=== PATIENT | female | born 1945 | race Caucasian/White ===

== ENCOUNTER 2017-06-17 05:50 | Emergency (ER) | payer MEDICARE, OTHER ==
[~2017-06-17] VITALS: Ht 157.5 cm; Wt 58.6 kg
[2017-06-17 05:50] VITALS: BP 156/67; PULSE 85; RESP 18; TEMP 98.2; O2SAT 97
[~2017-06-17 05:50] MED LIST: ALBU0.086 INH; FLOV44AE IN; FURO1TAB93 PO; IPRA0.02 INH; METO25 PO/TUBE; METO50CR PO; NEXI40CA PO; POLY17S PO/NG; POTA-243 PO; PRED20 PO; QUIN40TA10 PO; SIMV40TA PO; TIOT18I INH
[2017-06-17] MEDS ORDERED: CEPH-460 PO (06:23)
--- NOTE | 2017-06-17 06:23 | PD ---
HPI Chief Complaint: Fall Time Seen by Provider: 05:54 Travel History International Travel<30 days: No Contact w/Intl Traveler<30days: No Traveled to known affect area: No History of Present Illness HPI 71-year-old female complains of laceration to the right upper eye lid and the right forearm. Patient states that she fell this morning. Patient denies loss of consciousness. Patient denies any headache or neck pain. Patient denies any extremity injury except lacerations. Patient states that she is not up-to- date with TD booster. PFSH Past Medical History Arthritis: Yes Asthma: Yes Anxiety: No Depression: No Cancer: No Cardiovascular Problems: Yes (PEA CARDIAC ARREST: 04/22/15) High Cholesterol: Yes COPD: Yes Diabetes: No Diminished Hearing: No Endocrine: No Gastrointestinal Disorders: Yes GERD: Yes Genitourinary: No Hypertension: Yes Immune Disorder: No Implanted Vascular Access Dvce: Yes Musculoskeletal: Yes Neurologic: No Psychiatric: No Reproductive: No Respiratory: Yes Immunizations Current: Yes (SHINGLES VACCINE 2013) Myocardial Infarction: Yes Thyroid Disease: No Tetanus Vaccination: Unknown ?: Not Menopausal: Yes : 4 Para: 4 Past Surgical History Body Medical Devices: plates in left wrist and left shoulder. Eye Surgery: Yes (left eye cataract surgery) Gynecologic Surgery: Yes (hysterectomy fissure repair) Hysterectomy: Yes Pacemaker: No Other Surgery: Yes Social History Alcohol Use: Yes (6 GLASSES OF WINE PER WEEK) Tobacco Use: No (QUIT 05/06) Substance Use: No Allergies-Medications (Allergen,Severity, Reaction): Coded Allergies: Codeine (Verified Adverse Reaction, Intermediate, Nausea/Vomiting, 06/17/17 ) Reported Meds & Prescriptions Reported Meds & Active Scripts Active Metoprolol Tartrate 25 mg (Metoprolol Tartrate) 25 Mg Tab 25 Mg PO/TUBE Q12HR Polyethylene Glycol 3350 (Polyethylene Glycol) 17 Gm Pkg 17 Gm PO/NG BID Deltasone (Prednisone) 20 Mg Tab 1 Tab PO BID Atrovent Ud 0.02% (0.5 Mg/2.5 Ml) (Ipratropium [place]) 0.5 Mg/2.5 Ml Nebu 0.5 Mg INH Q4 Reported Proventil Ud 0.083% (2.5 Mg/3 Ml) (Albuterol Sulfate) 2.5 Mg/3 Ml Inha 2.5 Mg INH Q4 Metoprolol Succinate ER (Metoprolol Succinate) 50 Mg Tab 1 Tab PO DAILY Flovent Hfa (Fluticasone Propionate) 44 Mcg Aer 2 Puff IN BID Quinapril 40 mg (Quinapril HCl) 40 Mg Tab 40 Mg PO DAILY Spiriva 18 Mcg Oral Inh (Tiotropium [place]) 18 Mcg Inhp 18 Mcg INH DAILY 1 CAPSULE DAILY K-Dur (Potassium Chloride) 10 Meq Tabcr 20 Meq PO DAILY Simvastatin 40 Mg Tab 40 Mg PO DAILY Lasix (Furosemide) 40 Mg Tab 20 Mg PO DAILY Nexium (Esomeprazole Magnesium) 40 Mg Cap 40 Mg PO DAILY Review of Systems General / Constitutional: No: Fever Eyes: No: Visual changes HENT: No: Headaches Cardiovascular: No: Chest Pain or Discomfort Respiratory: No: Shortness of Breath Gastrointestinal: No: Abdominal Pain Genitourinary: No: Dysuria Musculoskeletal: No: Pain Skin: No Rash Neurologic: No: Weakness Psychiatric: No: Depression Endocrine: No: Polydipsia Hematologic/Lymphatic: No: Easy Bruising Physical Exam Narrative GENERAL: Well-nourished, well-developed patient. SKIN: Focused skin assessment warm/dry. HEAD: Normocephalic. EYES: No scleral icterus. No injection or drainage. NECK: Supple, trachea midline. No JVD or lymphadenopathy. CARDIOVASCULAR: Regular rate and rhythm without murmurs, gallops, or rubs. RESPIRATORY: Breath sounds equal bilaterally. No accessory muscle use. GASTROINTESTINAL: Abdomen soft, non-tender, nondistended. MUSCULOSKELETAL: No cyanosis, or edema. BACK: Nontender without obvious deformity. No CVA tenderness. Patient has a 4 cm laceration right upper eyelid. Minor bleeding noted. Patient has a 15 cm laceration to the right forearm ulnar aspect of the right forearm. Several macerated skin area on the laceration. Data Data Last Documented VS Vital Signs Date Time Temp Pulse Resp B/P Pulse Ox O2 Delivery O2 Flow Rate FiO2 06/17/17 05:50 98.2 85 18 156/67 97 06/17/17 05:50 Nasal Cannula 2 Orders Tetanus/Diphtheria Tox Adult (Tetanus/Di (06/17/17 06:30) MDM Medical Decision Making Medical Screen Exam Complete: Yes Emergency Medical Condition: Yes Differential Diagnosis Differential diagnosis including laceration, soft tissue injury, ligament tendon joint injury. Narrative Course 71-year-old female with right upper eyelid and right forearm laceration. TD booster given. Procedures Procedure Narrative LACERATION LOCATION: Right upper eyelid and right forearm LENGTH: 19 cm NUMBER OF STITCHES/YAEL: Dermabond REPAIR: The area of the laceration was cleaned with saline solution. The wound was copiously irrigated and explored without evidence of foreign body, tendon injury or neurovascular injury. The wound was closed using Dermabond. This was a single layer repair. A sterile dressing was applied. The patient was advised to keep the dressing clean and dry. Patient tolerated the procedure well. Diagnosis Primary Impression: Laceration, eyelid, right Qualified Code: S01.111A - Laceration, eyelid, right, initial encounter Additional Impression: Laceration of right forearm Qualified Code: S51.811A - Laceration of right forearm, initial encounter Patient Instructions: General Instructions Additional Instructions: Keep wound clean and dry for 10 days. Keflex as directed. Follow-up with personal physician. Return as needed. Med/Other Pt SpecificInfo: Prescription(s) given Scripts Cephalexin (Keflex)500 Mg [id number] Mg PO TID #15 CAP Ref 0 Prov:Marco A Holt MD 06/17/17 Disposition: 01 DISCHARGE HOME Condition: Stable Marco A Holt MD Jun 17, 2017 06:23
[2017-06-17] MEDS ORDERED: TETANUS/DIPHTHERIA TOXOID ADULT 0.5 ML VIAL IM ONE (06:30)
== END 2017-06-17 06:37 | disposition home or self-care (01) ==
LOC: PHED 05:50
DX: S01.111A Laceration without foreign body of right eyelid and periocular area, initial encounter (principal); S51.811A Laceration without foreign body of right forearm, initial encounter; W19.XXXA Unspecified fall, initial encounter; Z23 Encounter for immunization
CPT/HCPCS: 12005; 12013; 90471; 90714

== ENCOUNTER 2018-02-14 16:08 | Inpatient (IN) | payer MEDICARE, OTHER ==
[~2018-02-14] VITALS: Ht 160 cm; Wt 58.2 kg
[~2018-02-14 16:08] MED LIST changes: +CEPH-460 PO
[2018-02-14 16:43] VITALS: BP 155/68; PULSE 92; RESP 16; TEMP 98.5; O2SAT 94
[2018-02-14] MEDS ORDERED: MORPHINE SULFATE 4 MG/ML INJ IV PUSH ONE (17:00)
[2018-02-14 17:51] LABS: BASOPHIL # 0.1 TH/MM3 (0-0.2); BASOPHIL % 0.6 % (0.0-2.0); EOSINOPHIL # 0.3 TH/MM3 (0-0.4); EOSINOPHIL % 2.2 % (0.0-4.0); HEMATOCRIT 31.5 % (35.0-46.0); HEMOGLOBIN 9.7 GM/DL (11.6-15.3); LYMPH % 20.6 % (9.0-44.0); LYMPHOCYTE # 2.4 TH/MM3 (1.0-4.8); MEAN CELL VOLUME 72.1 FL (80.0-100.0); MEAN CORPUSCULAR HEMOGLOBIN 22.2 PG (27.0-34.0); MEAN CORPUSCULAR HGB CONC 30.9 % (32.0-36.0); MEAN PLATELET VOLUME 6.7 FL (7.0-11.0); MONOCYTE # 0.9 TH/MM3 (0-0.9); NEUT % 68.6 % (16.0-70.0); PLATELET COUNT 326 TH/MM3 (150-450); RED BLOOD COUNT 4.37 MIL/MM3 (4.00-5.30); RED CELL DISTRIBUTION WIDTH 19.1 % (11.6-17.2); WHITE BLOOD COUNT 11.6 TH/MM3 (4.0-11.0)
[2018-02-14 17:56] LABS: INTERNATIONAL NORMALIZED RATIO 0.9 RATIO; PROTHROMBIN TIME - PATIENT 9.3 SEC (9.8-11.6)
[2018-02-14 18:03] LABS: ALBUMIN 3.6 GM/DL (3.4-5.0); ALT (GPT) 18 U/L (10-53); AST (GOT) 20 U/L (15-37); BICARBONATE 30.7 MEQ/L (21.0-32.0); BLOOD UREA NITROGEN 9 MG/DL (7-18); CALCIUM 8.8 MG/DL (8.5-10.1); CHLORIDE 98 MEQ/L (98-107); CREATININE 0.51 MG/DL (0.50-1.00); GLOMERULAR FILTRATION RATE 118 ML/MIN (>89); GLUCOSE,RANDOM 95 MG/DL (74-106); SODIUM (NA) 137 MEQ/L (136-145)
[2018-02-14 18:05] VITALS: BP 143/69; PULSE 95; RESP 16; O2SAT 97
[2018-02-14 18:05] LABS: ALKALINE PHOSPHATASE 76 U/L (45-117); TOTAL BILIRUBIN ADULT 0.3 MG/DL (0.2-1.0); TOTAL PROTEIN 8.1 GM/DL (6.4-8.2)
--- NOTE | 2018-02-14 18:27 | RADRPT ---
EXAM DATE/TIME: 02/14/2018 17:58 [facility] COMPARISON: CHEST SINGLE AP, April 30, 2015, 4:22. INDICATIONS : Short of breath after fall. MEDICAL HISTORY : Chronic obstructive pulmonary disease. SURGICAL HISTORY : None. ENCOUNTER: Initial ACUITY: 1 day PAIN SCORE: 0/10 LOCATION: Bilateral chest FINDINGS: A single view of the chest demonstrates the lungs to be symmetrically aerated without evidence of mas s, infiltrate or effusion. The cardiomediastinal contours are unremarkable. Osseous structures are intact. CONCLUSION: 1. No acute findings. Silver Landaverde MD on February 14, 2018 at 18:23 Board Certified Radiologist. This report was verified electronically.
--- NOTE | 2018-02-14 18:56 | RADRPT ---
EXAM DATE/TIME: 02/14/2018 17:35 [facility] COMPARISON: No previous studies available for comparison. INDICATIONS : Pelvic pain post fall. MEDICAL HISTORY : None. SURGICAL HISTORY : None. ENCOUNTER: Initial ACUITY: 1 day PAIN SCORE: 10/10 LOCATION: Bilateral pelvis FINDINGS: There is an intertrochanteric fracture of the proximal left femur with varus angulation. No other fra ctures. Bones osteopenic. CONCLUSION: 1. Left femoral neck fracture. Silver Landaverde MD on February 14, 2018 at 18:53 Board Certified Radiologist. This report was verified electronically.
--- NOTE | 2018-02-14 18:57 | RADRPT ---
EXAM DATE/TIME: 02/14/2018 17:37 [facility] COMPARISON: No previous studies available for comparison. INDICATIONS : Left femur pain post fall. MEDICAL HISTORY : None. SURGICAL HISTORY : None. ENCOUNTER: Initial ACUITY: 1 day PAIN SCORE: 10/10 LOCATION: Left proximal femur. FINDINGS: Two view examination of the left femur demonstrates intertrochanteric fracture proximal left femur wi th varus angulation. Avulsion lesser trochanter. CONCLUSION: 1. Intertrochanteric fracture proximal left femur. Silver Landaverde MD on February 14, 2018 at 18:53 Board Certified Radiologist. This report was verified electronically.
--- NOTE | 2018-02-14 19:28 | PD ---
HPI Chief Complaint: Fall Time Seen by Provider: 16:46 Travel History International Travel<30 days: No Contact w/Intl Traveler<30days: No Traveled to known affect area: No History of Present Illness HPI Patient is a 72-year-old female comes in complaining of left hip pain after a fall today. She says she is trying to get up from the couch and she slipped. She is not exactly sure how it happened, but she denies hitting her head or any loss of consciousness. She says that she was in her normal state of health prior to falling. She is oxygen dependent at home. She denies chest pain or shortness of breath. She denies any back pain, dizziness, nausea or vomiting. Her only complaint is the hip pain. Severity is moderate. PFSH Past Medical History Arthritis: Yes Asthma: Yes Anxiety: No Depression: No Cancer: No Cardiovascular Problems: Yes (PEA CARDIAC ARREST: 04/22/15) High Cholesterol: Yes COPD: Yes Diabetes: No Diminished Hearing: No Endocrine: No Gastrointestinal Disorders: Yes GERD: Yes Genitourinary: No Hypertension: Yes Immune Disorder: No Implanted Vascular Access Dvce: Yes Musculoskeletal: Yes Neurologic: No Psychiatric: No Reproductive: No Respiratory: Yes Immunizations Current: Yes (SHINGLES VACCINE 2013) Myocardial Infarction: Yes Thyroid Disease: No Tetanus Vaccination: < 5 Years Influenza Vaccination: No ?: Unknown Menopausal: Yes : 4 Para: 4 Past Surgical History Body Medical Devices: plates in left wrist and left shoulder. Eye Surgery: Yes (left eye cataract surgery) Gynecologic Surgery: Yes (hysterectomy fissure repair) Hysterectomy: Yes Pacemaker: No Other Surgery: Yes Social History Alcohol Use: Yes (6 GLASSES OF WINE PER WEEK) Tobacco Use: No (QUIT 05/06) Substance Use: No Allergies-Medications (Allergen,Severity, Reaction): Coded Allergies: codeine (Unverified Adverse Reaction, Intermediate, Nausea/Vomiting, ) Reported Meds & Prescriptions Reported Meds & Active Scripts Active Active Prescriptions or Reported Medications Unobtainable Review of Systems Except as stated in HPI: all other systems reviewed are Neg General / Constitutional: No: Fever, Chills HENT: No: Headaches, Lightheadedness Cardiovascular: No: Chest Pain or Discomfort Respiratory: No: Shortness of Breath Gastrointestinal: No: Nausea, Vomiting Musculoskeletal: Positive: Pain Skin: No Rash, No Change in Pigmentation Neurologic: No: Weakness, Dizziness, Syncope Physical Exam Narrative GENERAL: Awake and alert, in no acute distress. SKIN: Focused skin assessment warm/dry. No wounds or signs of infection. HEAD: Atraumatic. Normocephalic. EYES: Pupils equal and round. No scleral icterus. No injection or drainage. ENT: No nasal bleeding or discharge. Mucous membranes pink and moist. NECK: Trachea midline. No JVD. No cervical spine tenderness. CARDIOVASCULAR: Regular rate and rhythm. No murmur appreciated. RESPIRATORY: No accessory muscle use. Clear to auscultation. Breath sounds equal bilaterally. GASTROINTESTINAL: Abdomen soft, non-tender, nondistended. MUSCULOSKELETAL: No obvious deformities. No clubbing. No cyanosis. Tender to palpation of the left hip, shortening of the left leg. Pedal pulses intact. NEUROLOGICAL: Awake and alert. No obvious cranial nerve deficits. Motor grossly within normal limits. Normal speech. PSYCHIATRIC: Appropriate mood and affect; insight and judgment normal. Data Data Last Documented VS Vital Signs Date Time Temp Pulse Resp B/P (MAP) Pulse Ox O2 Delivery O2 Flow Rate FiO2 02/14/18 18:05 95 16 143/69 (93) 97 Room Air 02/14/18 16:43 98.5 Orders Orders Iv Access Insert/Monitor (02/14/18 16:47) Complete Blood Count With Diff (02/14/18 16:47) Comprehensive Metabolic Panel (02/14/18 16:47) Act Partial Throm Time (Ptt) (02/14/18 16:47) Prothrombin Time / Inr (Pt) (02/14/18 16:47) Pelvis, Ap Only (Routine) (02/14/18 ) Femur (Ap & Lat/2vws) (02/14/18 ) Morphine Inj (Morphine Inj) (02/14/18 17:00) Chest, Single Ap (02/14/18 ) Labs Laboratory Tests Test 02/14/18 17:10 White Blood Count 11.6 TH/MM3 Red Blood Count 4.37 MIL/MM3 Hemoglobin 9.7 GM/DL Hematocrit 31.5 % Mean Corpuscular Volume 72.1 FL Mean Corpuscular Hemoglobin 22.2 PG Mean Corpuscular Hemoglobin Concent 30.9 % Red Cell Distribution Width 19.1 % Platelet Count 326 TH/MM3 Mean Platelet Volume 6.7 FL Neutrophils (%) (Auto) 68.6 % Lymphocytes (%) (Auto) 20.6 % Monocytes (%) (Auto) 8.0 % Eosinophils (%) (Auto) 2.2 % Basophils (%) (Auto) 0.6 % Neutrophils # (Auto) 8.0 TH/MM3 Lymphocytes # (Auto) 2.4 TH/MM3 Monocytes # (Auto) 0.9 TH/MM3 Eosinophils # (Auto) 0.3 TH/MM3 Basophils # (Auto) 0.1 TH/MM3 CBC Comment DIFF FINAL Differential Comment Prothrombin Time 9.3 SEC Prothromb Time International Ratio 0.9 RATIO Activated Partial Thromboplast Time 25.6 SEC Blood Urea Nitrogen 9 MG/DL Creatinine 0.51 MG/DL Random Glucose 95 MG/DL Total Protein 8.1 GM/DL Albumin 3.6 GM/DL Calcium Level 8.8 MG/DL Alkaline Phosphatase 76 U/L Aspartate Amino Transf (AST/SGOT) 20 U/L Alanine Aminotransferase (ALT/SGPT) 18 U/L Total Bilirubin 0.3 MG/DL Sodium Level 137 MEQ/L Potassium Level 4.0 MEQ/L Chloride Level 98 MEQ/L Carbon Dioxide Level 30.7 MEQ/L Anion Gap 8 MEQ/L Estimat Glomerular Filtration Rate 118 ML/MIN MDM Medical Decision Making Medical Screen Exam Complete: Yes Emergency Medical Condition: Yes Medical Record Reviewed: Yes Differential Diagnosis Hip fracture versus dislocation versus sprain versus syncope versus fall Narrative Course Patient is a 72-year-old female who comes in after a fall today complaining of left hip pain. Exam shows tenderness to the left hip as well as shortening of the left leg. IV established, labs sent. Patient given pain medicine. X-ray shows a left into her trochanteric fracture. Consult placed orthopedics. Patient will be admitted for further management. Diagnosis Primary Impression: Hip fracture Qualified Codes: S72.002A - Fracture of unspecified part of neck of left femur , initial encounter for closed fracture Admitting Information Admitting Physician Requests: Admit Scripts Unable to Obtain Active Prescriptions or Reported Meds Gail Saleh MD Feb 14, 2018 19:28
[2018-02-14] MEDS ORDERED: cloNIDine HCL 0.1 MG TAB PO PRN (20:15)
[2018-02-14] MEDS ORDERED: LACTULOSE SYRUP 20 GM/30 ML CUP PO PRN (20:15)
[2018-02-14] MEDS ORDERED: MAGNESIUM HYDROXIDE SUSP 30 ML CUP PO PRN (20:15)
[2018-02-14] MEDS ORDERED: NALOXONE HCL 0.4 MG/ML AMP IV PUSH PRN (20:15)
[2018-02-14] MEDS ORDERED: ACETAMINOPHEN 325 MG TAB PO PRN (20:15)
[2018-02-14] MEDS ORDERED: BISACODYL 10 MG SUPP RECTAL PRN (20:15)
[2018-02-14] MEDS ORDERED: RESP: ALBUTEROL 2.5 MG/IPRATROPIUM 0.5 MG NEB (PRN) NEB (20:15)
[2018-02-14] MEDS ORDERED: SODIUM CHLORIDE 0.9% FLUSH 10 ML FLUSH IV FLUSH PRN (20:15)
[2018-02-14] MEDS ORDERED: SENNOSIDES 8.6 MG TAB PO PRN (20:15)
--- NOTE | 2018-02-14 20:19 | HHI.HP ---
[facility] Service [facility] Primary Care Physician Sixto Coleman DO Admission Diagnosis hip fracture Diagnoses: Travel History International Travel<30 Days: No Contact w/Intl Traveler <30 Da: No Traveled to Known Affected Are: No History of Present Illness 72-year-old female with a past medical history significant for hypertension, COPD on 2 L nasal cannula, CAD status post AL 2 years ago and hyperlipidemia presents to the emergency department for evaluation of a fall. The patient is an extremely poor historian. She reports she fell onto her left side while walking in her home earlier today. She is unable to provide me with any additional details. She denies any loss of consciousness. She is confused and asks me who I am multiple times. It is unclear what the patient's baseline is. Review of Systems Except as stated in HPI: all other systems reviewed are Neg Past Family Social History Past Medical History Pretension COPD on 2 L nasal cannula CAD status post AL 2 years ago Hyperlipidemia Past Surgical History None Reported Medications Reported Meds & Active Scripts Active Active Prescriptions or Reported Medications Unobtainable Allergies: Coded Allergies: codeine (Unverified Adverse Reaction, Intermediate, Nausea/Vomiting, ) Family History Negative for CAD/DM Social History Smoking 2 years ago. Occasional alcohol. Denies illicit drugs. Physical Exam Vital Signs Vital Signs Date Time Temp Pulse Resp B/P (MAP) Pulse Ox O2 Delivery O2 Flow Rate FiO2 02/14/18 18:05 95 16 143/69 (93) 97 Room Air 02/14/18 16:43 98.5 92 16 155/68 (97) 94 Physical Exam GENERAL: female lying in bed SKIN: No rashes, ecchymoses or lesions. Cool and dry. HEAD: Atraumatic. Normocephalic. No temporal or scalp tenderness. EYES: Pupils equal round and reactive. Extraocular motions intact. No scleral icterus. No injection or drainage. ENT: Nose without bleeding, purulent drainage or septal hematoma. Throat without erythema, tonsillar hypertrophy or exudate. Uvula midline. Airway patent. NECK: Trachea midline. No JVD or lymphadenopathy. Supple, nontender, no meningeal signs. CARDIOVASCULAR: Regular rate and rhythm without murmurs, gallops, or rubs. RESPIRATORY: Bilateral wheezes in the anterior nguyen. GASTROINTESTINAL: Abdomen soft, non-tender, nondistended. No hepato-splenomegaly , or palpable masses. No guarding. MUSCULOSKELETAL: Left hip externally rotated left lower extremity shorter than right. Neurovascularly intact. NEUROLOGICAL: Awake and alert. Cranial nerves II through XII intact. Motor and sensory grossly within normal limits. Normal speech. Laboratory Laboratory Tests Test 02/14/18 17:10 White Blood Count 11.6 Red Blood Count 4.37 Hemoglobin 9.7 Hematocrit 31.5 Mean Corpuscular Volume 72.1 Mean Corpuscular Hemoglobin 22.2 Mean Corpuscular Hemoglobin Concent 30.9 Red Cell Distribution Width 19.1 Platelet Count 326 Mean Platelet Volume 6.7 Neutrophils (%) (Auto) 68.6 Lymphocytes (%) (Auto) 20.6 Monocytes (%) (Auto) 8.0 Eosinophils (%) (Auto) 2.2 Basophils (%) (Auto) 0.6 Neutrophils # (Auto) 8.0 Lymphocytes # (Auto) 2.4 Monocytes # (Auto) 0.9 Eosinophils # (Auto) 0.3 Basophils # (Auto) 0.1 CBC Comment DIFF FINAL Differential Comment Prothrombin Time 9.3 Prothromb Time International Ratio 0.9 Activated Partial Thromboplast Time 25.6 Blood Urea Nitrogen 9 Creatinine 0.51 Random Glucose 95 Total Protein 8.1 Albumin 3.6 Calcium Level 8.8 Alkaline Phosphatase 76 Aspartate Amino Transf (AST/SGOT) 20 Alanine Aminotransferase (ALT/SGPT) 18 Total Bilirubin 0.3 Sodium Level 137 Potassium Level 4.0 Chloride Level 98 Carbon Dioxide Level 30.7 Anion Gap 8 Estimat Glomerular Filtration Rate 118 Result Diagram: 02/14/18 1710 02/14/18 1710 Caprini VTE Risk Assessment Caprini VTE Risk Assessment: Mod/High Risk (score >= 2) Caprini Risk Assessment Model Point Value = 1 Point Value = 2 Point Value = 3 Point Value = 5 Age 41-60 Minor surgery BMI > 25 kg/m2 Swollen legs Varicose veins or History of unexplained or recurrent spontaneous Oral contraceptives or hormone replacement Sepsis (< 1 month) Serious lung disease, including pneumonia (< 1 month) Abnormal pulmonary function Acute myocardial infarction Congestive heart failure (< 1 month) History of inflammatory bowel disease Medical patient at bed rest Age 61-74 Arthroscopic surgery Major open surgery (> 45 min) Laparoscopic surgery (> 45 min) Malignancy Confined to bed (> 72 hours) Immobilizing plaster cast Central venous access Age >= 75 History of VTE Family history of VTE Factor V Leiden Prothrombin [id number] Lupus anticoagulant Anticardiolipin antibodies Elevated serum homocysteine Heparin-induced thrombocytopenia Other congenital or acquired thrombophilia Stroke (< 1 month) Elective arthroplasty Hip, pelvis, or leg fracture Acute spinal cord injury (< 1 month) Prophylaxis Regimen Total Risk Factor Score Risk Level Prophylaxis Regimen 0-1 Low Early ambulation 2 Moderate Order ONE of the following: *Sequential Compression Device (SCD) *Heparin 5000 units SQ BID 3-4 Higher Order ONE of the following medications: *Heparin 5000 units SQ TID *Enoxaparin/Lovenox 40 mg SQ daily (WT < 150 kg, CrCl > 30 mL/min) *Enoxaparin/Lovenox 30 mg SQ daily (WT < 150 kg, CrCl > 10-29 mL/min) *Enoxaparin/Lovenox 30 mg SQ BID (WT < 150 kg, CrCl > 30 mL/min) AND/OR *Sequential Compression Device (SCD) 5 or more Highest Order ONE of the following medications: *Heparin 5000 units SQ TID (Preferred with Epidurals) *Enoxaparin/Lovenox 40 mg SQ daily (WT < 150 kg, CrCl > 30 mL/min) *Enoxaparin/Lovenox 30 mg SQ daily (WT < 150 kg, CrCl > 10-29 mL/min) *Enoxaparin/Lovenox 30 mg SQ BID (WT < 150 kg, CrCl > 30 mL/min) AND *Sequential Compression Device (SCD) Assessment and Plan Assessment and Plan Assessment/plan: 1. Left hip fracture Status post mechanical fall Pelvic x-ray significant for an intertrochanteric fracture of the proximal left femur with varus angulation Orthopedic surgery consulted, appreciate assistance Nothing by mouth Morphine for pain 2. COPD Continue 2 L nasal cannula Duo nebs when necessary 3. Hypertension/hyperlipidemia/CAD Patient does not know her home medications Order placed a call patient's pharmacy to obtain medication list Continue home medications once determined FEN NPO NS at 75 cc/hr Electrolytes: Monitor and replete when necessary Holding pharmacologic anticoagulation secondary to anticipation of operative intervention Physician Certification 2 Midnight Certification Type: Admission for Inpatient Services Order for Inpatient Services The services are ordered in accordance with Medicare regulations or non- Medicare payer requirements, as applicable. In the case of services not specified as inpatient-only, they are appropriately provided as inpatient services in accordance with the 2-midnight benchmark. Estimated LOS (days): 2 2 days is the estimated time the patient will need to remain in the hospital, assuming treatment plan goals are met and no additional complications. Post-Hospital Plan: Not yet determined Ruthann Lora MD Feb 14, 2018 20:18
[2018-02-14] MEDS: SODIUM CHLOR 0.9% 1000 ML INJ 1,000 ML IV SCH (20:29)
[2018-02-14 20:35] VITALS: BP 118/56; PULSE 94; RESP 20; O2SAT 94
[2018-02-14] MEDS: DOCUSATE SODIUM 50 MG/SENNA 8.6 MG TAB PO SCH (21:00)
[2018-02-14] MEDS: SODIUM CHLORIDE 0.9% FLUSH 10 ML FLUSH IV FLUSH SCH (21:00)
[2018-02-14] MEDS: MORPHINE SULFATE 2 MG/ML INJ IM PRN (23:59)
[2018-02-15] VITALS (8 sets, daily range): BP systolic 122–188; BP diastolic 59–99; PULSE 95–115; RESP 17–20; TEMP 97.1–99.1; O2SAT 93–95
[2018-02-15] MEDS: ONDANSETRON HCL 4 MG/2 ML VIAL IVP PRN ×2 (00:07→06:47)
[2018-02-15] MEDS: MORPHINE SULFATE 2 MG/ML INJ IM PRN ×2 (03:19→08:42)
[2018-02-15 07:04] LABS: AUTOMATED NEUTROPHIL # 9.3 TH/MM3 (1.8-7.7); BASOPHIL # 0.1 TH/MM3 (0-0.2); BASOPHIL % 0.6 % (0.0-2.0); EOSINOPHIL % 0.1 % (0.0-4.0); HEMATOCRIT 29.3 % (35.0-46.0); LYMPH % 14.4 % (9.0-44.0); LYMPHOCYTE # 1.8 TH/MM3 (1.0-4.8); MEAN CELL VOLUME 70.9 FL (80.0-100.0); MEAN CORPUSCULAR HEMOGLOBIN 21.8 PG (27.0-34.0); MEAN CORPUSCULAR HGB CONC 30.7 % (32.0-36.0); MEAN PLATELET VOLUME 6.4 FL (7.0-11.0); MONO % 9.8 % (0.0-8.0); MONOCYTE # 1.2 TH/MM3 (0-0.9); NEUT % 75.1 % (16.0-70.0); PLATELET COUNT 304 TH/MM3 (150-450); RED BLOOD COUNT 4.13 MIL/MM3 (4.00-5.30); RED CELL DISTRIBUTION WIDTH 18.9 % (11.6-17.2); WHITE BLOOD COUNT 12.3 TH/MM3 (4.0-11.0)
[2018-02-15 07:33] LABS: BICARBONATE 27.4 MEQ/L (21.0-32.0); CALCIUM 8.3 MG/DL (8.5-10.1); CREATININE 0.43 MG/DL (0.50-1.00)
[2018-02-15] MEDS: SODIUM CHLORIDE 0.9% FLUSH 10 ML FLUSH IV FLUSH SCH ×2 (08:40→20:59)
[2018-02-15] MEDS: DOCUSATE SODIUM 50 MG/SENNA 8.6 MG TAB PO SCH ×2 (08:41→20:59)
[2018-02-15] MEDS: SODIUM CHLOR 0.9% 1000 ML INJ 1,000 ML IV SCH ×2 (08:41→23:37)
--- NOTE | 2018-02-15 10:18 | PD.CONS ---
HPI Service Orthopedic Surgeons Consult Requested By Reason for Consult Left intertrochanteric femur fracture Primary Care Physician Sixto Coleman DO Admission Diagnosis hip fracture Diagnoses: Chief Complaint: Left hip pain History of Present Illness 72-year-old female with a past medical history significant for hypertension, COPD on 2 L nasal cannula, CAD status post NC 2 years ago and hyperlipidemia presents to the emergency department for evaluation of a fall. The patient is an extremely poor historian. She reports she fell onto her left side while walking in her home earlier today. She denies any loss of consciousness. She cannot completely explain how she fell. She denies any other injuries currently. Review of Systems Constitutional: DENIES: Fever Endocrine: DENIES: Polyuria Eyes: DENIES: Blurred vision Ears, nose, mouth, throat: DENIES: Throat pain Respiratory: COMPLAINS OF: Shortness of breath (on oxygen chronically), DENIES : Cough Cardiovascular: DENIES: Chest pain Gastrointestinal: DENIES: Abdominal pain Genitourinary: DENIES: Urinary incontinence Musculoskeletal: COMPLAINS OF: Joint pain, Muscle aches, Joint Swelling Integumentary: DENIES: Rash Hematologic/lymphatic: DENIES: Bruising Immunologic/allergic: DENIES: Eczema Neurologic: DENIES: Abnormal gait Psychiatric: DENIES: Anxiety Past Family Social History Past Medical History COPD on 2 L nasal cannula CAD status post NC 2 years ago Hyperlipidemia Past Surgical History None Reported Medications See chart for full list. Denies any blood thinners Allergies: Coded Allergies: codeine (Unverified Adverse Reaction, Intermediate, Nausea/Vomiting, ) Active Ordered Medications Current Medications Medications (Trade) Dose Ordered Sig/Carrie Route Start Time Stop Time Status Last Admin Sodium Chloride 1,000 ml @ 75 mls/hr [id number] IV 02/14/18 20:15 02/15/18 08:41 (NS Flush) 2 ml UNSCH PRN IV FLUSH 02/14/18 20:15 (NS Flush) 2 ml BID IV FLUSH 02/14/18 21:00 (Tylenol) 650 mg Q4H PRN PO 02/14/18 20:15 (Zofran Inj) 4 mg Q6H PRN IVP 02/14/18 20:15 02/15/18 06:47 (Narcan Inj) 0.4 mg UNSCH PRN IV PUSH 02/14/18 20:15 (Ayleen-Colace) 1 tab BID PO 02/14/18 21:00 (Milk Of Magnesia Liq) 30 ml Q12H PRN PO 02/14/18 20:15 (Senokot) 17.2 mg Q12H PRN PO 02/14/18 20:15 (Dulcolax Supp) 10 mg DAILY PRN RECTAL 02/14/18 20:15 (Lactulose Liq) 30 ml DAILY PRN PO 02/14/18 20:15 (Morphine Inj) 2 mg Q3H PRN IM 02/14/18 20:15 02/15/18 08:42 (Duoneb Neb) 1 ampule Q4HR NEB PRN NEB 02/14/18 20:15 (Catapres) 0.1 mg Q6H PRN PO 02/14/18 20:15 Reported Meds & Active Scripts Active Active Prescriptions or Reported Medications Unobtainable Family History Negative for CAD/DM Social History Smoking 2 years ago. Occasional alcohol. Denies illicit drugs. Physical Exam Vital Signs Vital Signs Date Time Temp Pulse Resp B/P (MAP) Pulse Ox O2 Delivery O2 Flow Rate FiO2 02/15/18 10:04 95 Nasal Cannula 2.00 02/15/18 08:00 98.0 115 17 187/87 (120) 95 02/15/18 04:45 95 Nasal Cannula 2.00 02/15/18 00:00 99.1 106 20 122/59 (80) 95 02/14/18 20:50 02/14/18 20:35 94 20 118/56 (76) 94 Room Air 02/14/18 18:05 95 16 143/69 (93) 97 Room Air 02/14/18 16:43 98.5 92 16 155/68 (97) 94 Physical Exam Awake, alert, no acute distress Normocephalic Pupils equal No JVD Moist mucous membranes Nonlabored respirations, on nasal cannula Regular rate Soft nontender abdomen BUE: No tenderness palpation or visible deformities. Full active range of motion and strength throughout. Sensation intact. Radial pulses palpable. LLE: Positive logroll. Unable to assess range of motion at hip and knee due to discomfort. Patient is neurovascularly intact distally. Negative Homans. Brisk cap refill. RLE: No tenderness palpation or visible deformities. Full active range of motion and strength throughout. Sensation intact. Dorsalis pedis pulse palpable. No rash Normal affect Laboratory Laboratory Tests Test 02/14/18 17:10 02/15/18 06:40 White Blood Count 11.6 12.3 Red Blood Count 4.37 4.13 Hemoglobin 9.7 9.0 Hematocrit 31.5 29.3 Mean Corpuscular Volume 72.1 70.9 Mean Corpuscular Hemoglobin 22.2 21.8 Mean Corpuscular Hemoglobin Concent 30.9 30.7 Red Cell Distribution Width 19.1 18.9 Platelet Count 326 304 Mean Platelet Volume 6.7 6.4 Neutrophils (%) (Auto) 68.6 75.1 Lymphocytes (%) (Auto) 20.6 14.4 Monocytes (%) (Auto) 8.0 9.8 Eosinophils (%) (Auto) 2.2 0.1 Basophils (%) (Auto) 0.6 0.6 Neutrophils # (Auto) 8.0 9.3 Lymphocytes # (Auto) 2.4 1.8 Monocytes # (Auto) 0.9 1.2 Eosinophils # (Auto) 0.3 0.0 Basophils # (Auto) 0.1 0.1 CBC Comment DIFF FINAL DIFF FINAL Differential Comment Prothrombin Time 9.3 Prothromb Time International Ratio 0.9 Activated Partial Thromboplast Time 25.6 Blood Urea Nitrogen 9 10 Creatinine 0.51 0.43 Random Glucose 95 104 Total Protein 8.1 Albumin 3.6 Calcium Level 8.8 8.3 Alkaline Phosphatase 76 Aspartate Amino Transf (AST/SGOT) 20 Alanine Aminotransferase (ALT/SGPT) 18 Total Bilirubin 0.3 Sodium Level 137 138 Potassium Level 4.0 4.2 Chloride Level 98 103 Carbon Dioxide Level 30.7 27.4 Anion Gap 8 8 Estimat Glomerular Filtration Rate 118 144 Result Diagram: 02/15/18 0640 02/15/18 0640 Imaging Last 48 hours Impressions Pelvis X-Ray 02/14/18 0000 Signed Impressions: Service Date/Time: Wednesday, February 14, 2018 17:35 - CONCLUSION: 1. Left femoral neck fracture. Silver Landaverde MD Femur X-Ray 02/14/18 0000 Signed Impressions: Service Date/Time: Wednesday, February 14, 2018 17:37 - CONCLUSION: 1. Intertrochanteric fracture proximal left femur. Silver Landaverde MD Chest X-Ray 02/14/18 0000 Signed Impressions: Service Date/Time: Wednesday, February 14, 2018 17:58 - CONCLUSION: 1. No acute findings. Silver Landaverde MD Assessment & Plan Assessment and Plan 72-year-old female with left intertrochanteric femur fracture Options management were discussed with the patient. Given her displaced intertrochanteric femur fracture, I recommended operative intervention the form of intramedullary nail of her left intertrochanteric femur fracture. Risks, benefits, alternatives were discussed. Risks of surgery including but not limited to: Infection, nonunion or malunion, hardware malposition or failure, neurovascular injury, possible need for further surgery, and other unforeseen complications were all discussed with the patient. At this time the patient has consented to the procedure. NPO for surgery today. Shalini Price MD Feb 15, 2018 10:18
--- NOTE | 2018-02-15 10:22 | HHI.PR ---
Subjective Remarks in no acute distress. complaining of pain to the left hip. no other complaints. Objective Vitals Vital Signs Date Time Temp Pulse Resp B/P (MAP) Pulse Ox O2 Delivery O2 Flow Rate FiO2 02/15/18 10:04 95 Nasal Cannula 2.00 02/15/18 08:00 98.0 115 17 187/87 (120) 95 02/15/18 04:45 95 Nasal Cannula 2.00 02/15/18 00:00 99.1 106 20 122/59 (80) 95 02/14/18 20:50 02/14/18 20:35 94 20 118/56 (76) 94 Room Air 02/14/18 18:05 95 16 143/69 (93) 97 Room Air 02/14/18 16:43 98.5 92 16 155/68 (97) 94 I/O 02/14/18 02/14/18 02/14/18 02/15/18 02/15/18 02/15/18 07:00 15:00 23:00 07:00 15:00 23:00 Intake Total 0 ml 0 ml Balance 0 ml 0 ml Intake Oral 0 ml 0 ml # Voids 0 Result Diagram: 02/15/18 0640 02/15/18 0640 Imaging Last Impressions Pelvis X-Ray 02/14/18 0000 Signed Impressions: Service Date/Time: Wednesday, February 14, 2018 17:35 - CONCLUSION: 1. Left femoral neck fracture. Silver Landaverde MD Femur X-Ray 02/14/18 0000 Signed Impressions: Service Date/Time: Wednesday, February 14, 2018 17:37 - CONCLUSION: 1. Intertrochanteric fracture proximal left femur. Silver Landaverde MD Chest X-Ray 02/14/18 0000 Signed Impressions: Service Date/Time: Wednesday, February 14, 2018 17:58 - CONCLUSION: 1. No acute findings. Silver Landaverde MD Objective Remarks GENERAL: This is a well-nourished, well-developed patient, in no apparent distress. CARDIOVASCULAR: Regular rate and regular rhythm without murmurs, gallops, or rubs. RESPIRATORY: Clear to auscultation. Breath sounds equal bilaterally. No wheezes , rales, or rhonchi. GASTROINTESTINAL: Abdomen soft, non-tender, nondistended. Normal, active bowel sounds MUSCULOSKELETAL: Extremities without clubbing, cyanosis, or edema. NEURO: Alert & Oriented x4 to person, place, time, situation. Moves all ext x4 Medications and IVs Inpatient Medications Acetaminophen (Tylenol) 650 mg Q4H PRN PO TEMP > 100.4; Start 02/14/18 at 20:15 Albuterol/ Ipratropium (Duoneb Neb) 1 ampule Q4HR NEB PRN NEB SOB/Wheezing; Start 02/14/18 at 20:15 Bisacodyl (Dulcolax Supp) 10 mg DAILY PRN RECTAL SEVERE CONSITIPATION; Start at 20:15 Clonidine (Catapres) 0.1 mg Q6H PRN PO SBP>160, DBP>90; Start 02/14/18 at 20:15 Lactulose (Lactulose Liq) 30 ml DAILY PRN PO SEVERE CONSITIPATION; Start at 20:15 Magnesium Hydroxide (Milk Of Magnesia Liq) 30 ml Q12H PRN PO Mild constipation ; Start 02/14/18 at 20:15 Morphine Sulfate (Morphine Inj) 2 mg Q3H PRN IM pain 6-10 Last administered on 02/15/18at 08:42; Start 02/14/18 at 20:15 Naloxone HCl (Narcan Inj) 0.4 mg UNSCH PRN IV PUSH SEE LABEL COMMENTS; Start at 20:15 Ondansetron HCl (Zofran Inj) 4 mg Q6H PRN IVP NAUSEA OR VOMITING Last administered on 02/15/18at 06:47; Start 02/14/18 at 20:15 Senna/Docusate Sodium (Ayleen-Colace) 1 tab BID PO ; Start 02/14/18 at 21:00 Sennosides (Senokot) 17.2 mg Q12H PRN PO Moderate constipation; Start 02/14/18 at 20:15 Sodium Chloride (NS Flush) 2 ml BID IV FLUSH ; Start 02/14/18 at 21:00 A/P Assessment and Plan 1. Left hip fracture Status post mechanical fall Pelvic x-ray significant for an intertrochanteric fracture of the proximal left femur with varus angulation Orthopedic surgery consulted, appreciate assistance Nothing by mouth continue pain control. 2. COPD Continue 2 L nasal cannula Duo nebs when necessary 3. Hypertension/hyperlipidemia/CAD will verify the home meds. Continue home medications once determined Discharge Planning awaiting ortho evaluation/ intervention. Kaylee Clarke MD Feb 15, 2018 10:22
[2018-02-15] MEDS ORDERED: PROCHLORPERAZINE INJ 10 MG/2 ML VIAL IV PUSH PRN (10:45)
[2018-02-15] MEDS: MORPHINE SULFATE 2 MG/ML INJ IV PRN ×3 (11:37→23:39)
[2018-02-15] MEDS ORDERED: SIMV40TA PO (11:56)
[2018-02-15] MEDS ORDERED: QUIN5TAB6 PO (11:56)
[2018-02-15] MEDS ORDERED: FLUTI44I INH (11:56)
[2018-02-15] MEDS ORDERED: METO1TAB9 PO (11:56)
[2018-02-15] MEDS ORDERED: NEXI40CA PO (11:56)
[2018-02-15] MEDS ORDERED: POTA-163 PO (11:56)
[2018-02-15] MEDS ORDERED: SPIRCAP INH (11:56)
[2018-02-15] MEDS ORDERED: ALBU0.08 NEB (11:56)
[2018-02-15] MEDS ORDERED: SUCCINYLCHOLINE CHLORIDE 100 MG/5 ML SYRINGE IV PUSH ONE (12:00)
[2018-02-15] MEDS ORDERED: PHENYLEPH/NS 1000 MCG/10 ML SYR IV ONE (12:00)
[2018-02-15] MEDS ORDERED: ONDANSETRON HCL 4 MG/2 ML VIAL IV ONE (12:00)
[2018-02-15] MEDS ORDERED: ENALAPRILAT 1.25 MG/ML VIAL IV PUSH PRN (12:00)
[2018-02-15] MEDS ORDERED: PROPOFOL 200 MG/20 ML AMP IV ONE (12:00)
[2018-02-15] MEDS ORDERED: LIDOCAINE HCL 1% PF 5 ML SYRINGE OTHER ONE (12:00)
[2018-02-15] MEDS ORDERED: DEXAMETHASONE SOD PHOS 4 MG/ML VIAL IV ONE (12:00)
[2018-02-15] MEDS ORDERED: PILL SPLITTER OTHER PRN (12:15)
[2018-02-15] MEDS: CYCLOBENZAPRINE HCL 10 MG TAB PO PRN (12:42)
[2018-02-15] MEDS ORDERED: BUPIVACAINE/EPINEPHRINE 0.25% 50 ML VIAL ONE (15:43)
[2018-02-15] MEDS ORDERED: VANCOMYCIN HCL 1000 MG VIAL ONE ×2 (15:44→17:18)
[2018-02-15] MEDS ORDERED: GENTAMICIN SULFATE 80 MG/2 ML VIAL ONE (15:44)
[2018-02-15] MEDS ORDERED: ceFAZolin INJ 1,000 MG VIAL ONE (15:44)
[2018-02-15] MEDS ORDERED: Post-op Orders (for Pharmacy) XX ONE (17:45)
[2018-02-15] MEDS ORDERED: SODIUM CHLORIDE 0.9% FLUSH 10 ML FLUSH IV FLUSH PRN (17:45)
--- NOTE | 2018-02-15 17:49 | PD.OP ---
cc: Shalini Price MD Operative Report Date of Surgery: Feb 15, 2018 Preoperative Diagnosis: Closed left intertrochanteric femur fracture Postoperative Diagnosis: Same Procedure: Intramedullary nail left intertrochanteric femur fracture Anesthesia: Gen. Surgeon: Shalini Price Cable Wirer(s): Vinay Atkins Operation and Findings: EBL: 50 cc Complications: None Specimens: None Indications for procedure patient is a 72-year-old female presented to the hospital after a trip and fall with acute onset of left hip pain. Patient was found to have a left intertrochanteric femur fracture. Recommendation range measuring nail of her left femur fracture. Risks, benefits, alternatives were discussed with the patient. Risks of surgery including but not limited to: Infection, nonunion or malunion, hardware malposition or failure, neurovascular injury, persistent hip pain and or stiffness, possible need for further surgery , and other interesting complications were all discussed with the patient. At this time she is consented to the procedure. Description of procedure: Patient was brought back to the operating room where general anesthesia then ensued. Patient was then positioned supine on the operating room fracture table with all bony prominences well-padded. Patient was prepped and draped in standard sterile fashion. A timeout was performed to identify correct patient, side, site and procedure to be performed. Preoperative antibiotics were given within 1 hour of incision. The patient's left intertrochanteric femur fracture was reduced with the use of traction and rotation. A small proximal one and a half inch incision was made just proximal and posterior to the greater trochanter. Sharp dissection through skin subtendinous tissue and fascia was performed. A guidewire was then placed into the tip of the greater trochanter on both AP and lateral radiographs. This was advanced to the lesser trochanteric region. An opening reamer was then used to allow access to the femoral canal and advanced the lesser trochanteric region. A Synthes TFN 11 mm diameter nail was then inserted into the femur and advanced into appropriate position on both AP and lateral films. The guide sleeves were placed through the insertion handle and jig and a lateral incision was made over the proximal femur to allow the guide sleeves to be placed down to the lateral cortex of the proximal femur. A guidewire was placed in the femoral neck and the femoral head in a center center position on both AP and lateral radiographs. This was subsequently measured, drilled and a 90 mm locking blade was then inserted into appropriate position and verified in both AP and lateral radiographs. The proximal locking screw was then tightened and backed off a half turn. The guide sleeves were then placed for the distal locking screw. Again a lateral based incision was made to allow the calluses down to the lateral cortex of the femur. This was drilled, measured and a distal locking screw placed. The insertion handle was removed. Final radiographs to mistreated the fracture was in acceptable alignment and hardware was in good position. All wounds were irrigated with normal saline laden with gentamicin. Deep tissue was closed with interrupted Vicryl sutures and the skin closed with bin. Sterile dressings were placed. Patient was transferred off the operating room table and awoken from general anesthesia without complications. Disposition: Patient will be partial weightbearing 50% to the left lower extremity. Shalini Price MD Feb 15, 2018 17:49
[2018-02-15] MEDS ORDERED: DO NOT ADM ANY ANTICOAGULANT DRUGS PRN (18:10)
[2018-02-15] MEDS ORDERED: *RESP: ALBUTEROL 2.5 MG/3 ML NEB (PRN) PERIprocedural Use ONLY NEB ONE (18:16)
[2018-02-15] MEDS ORDERED: *morphine SULFATE 4 MG/ML PERIprocedure ONLY ONE (18:20)
--- NOTE | 2018-02-15 20:09 | RADRPT ---
EXAM DATE/TIME: 02/15/2018 17:38 [facility] COMPARISON: FEMUR LEFT (AP & LAT/2VWS), February 14, 2018, 17:37. INDICATIONS : Left troch nail placement. MEDICAL HISTORY : Chronic obstructive pulmonary disease. SURGICAL HISTORY : None. ENCOUNTER: Subsequent ACUITY: 2 days PAIN SCORE: Non-responsive. LOCATION: Left hip. FINDINGS: The patient has a short intramedullary aldo and a stabilization nail through the femoral neck. The shalini dware is well-placed. There is successful reduction of the previously seen intertrochanteric left fem oral neck fracture. CONCLUSION: Successful ORIF. Geo Funk MD on February 15, 2018 at 20:06 Board Certified Radiologist. This report was verified electronically.
[2018-02-15] MEDS: FLUTICASONE PROPIONATE 44 MCG/ACT 10.6 GM INHALER INH SCH (23:37)
[2018-02-16] VITALS (7 sets, daily range): BP systolic 142–167; BP diastolic 62–77; PULSE 94–108; RESP 17–20; TEMP 97.5–99.6; O2SAT 92–98
[2018-02-16] MEDS: CYCLOBENZAPRINE HCL 10 MG TAB PO PRN ×3 (03:45→21:11)
[2018-02-16] MEDS: MORPHINE SULFATE 2 MG/ML INJ IV PRN ×2 (03:45→16:36)
[2018-02-16] MEDS: ENOXAPARIN SODIUM 40 MG/0.4 ML SYRINGE SQ SCH (05:56)
--- NOTE | 2018-02-16 07:41 | PD.ORT.PN ---
Subjective Subjective Remarks Patient resting comfortably this morning. States her pain is well controlled at rest Objective Vitals Vital Signs Date Time Temp Pulse Resp B/P (MAP) Pulse Ox O2 Delivery O2 Flow Rate FiO2 02/16/18 03:55 97.6 94 20 142/68 (92) 96 02/16/18 00:14 92 Nasal Cannula 4.00 02/15/18 23:45 97.1 101 19 162/75 (104) 93 02/15/18 20:15 98.6 95 18 128/60 (82) 95 02/15/18 19:15 99 12 140/68 (92) 95 Nasal Cannula 4 02/15/18 19:00 100 12 140/66 (90) 94 Nasal Cannula 4 02/15/18 18:45 101 20 136/62 (86) 94 Nasal Cannula 4 02/15/18 18:30 100 22 136/63 (87) 95 Nasal Cannula 4 02/15/18 18:11 97.4 103 22 133/62 (85) 95 Simple Mask 8 02/15/18 12:40 185/99 (127) 02/15/18 12:00 97.9 106 20 188/90 (122) 95 02/15/18 10:04 95 Nasal Cannula 2.00 02/15/18 08:00 98.0 115 17 187/87 (120) 95 I/O 02/15/18 02/15/18 02/15/18 02/16/18 02/16/18 02/16/18 07:00 15:00 23:00 07:00 15:00 23:00 Intake Total 0 ml 0 ml 650 ml 1827 ml Output Total 50 ml Balance 0 ml 0 ml 600 ml 1827 ml Intake Oral 0 ml 0 ml 240 ml IV Total 650 ml 1587 ml Output Estimated Blood Loss 50 ml # Voids 0 3 # Bowel Movements 0 Result Diagram: 02/15/18 0640 02/15/18 0640 Objective Remarks sleeping but arousable. No acute distress Left lower extremity: Dressings in place without any significant drainage. Neurovascularly intact distally. Negative Homans. Brisk cap refill. Assessment & Plan Assessment and Plan 72-year-old female with left intertrochanteric femur fracture, postop day 1 status post intramedullary nail left intertrochanteric femur fracture 1. Partial weightbearing 50% left lower extremity 2. Physical therapy for mobilization 3. Lovenox for DVT prophylaxis. 4. Dressing changes starting on postoperative day 2 5. Patient can follow-up in my office in 2 weeks. I suspect patient will likely require placement upon discharge. Shalini Price MD Feb 16, 2018 07:41
[2018-02-16] MEDS: DOCUSATE SODIUM 50 MG/SENNA 8.6 MG TAB PO SCH ×2 (08:00→21:11)
[2018-02-16] MEDS: LISINOPRIL 20 MG TAB PO SCH (08:00)
[2018-02-16] MEDS: POTASSIUM CHLORIDE 20 MEQ CONTROLLED RELEASE TAB PO SCH (08:00)
[2018-02-16] MEDS: PRAVASTATIN SOD 80 MG TAB PO SCH (08:00)
[2018-02-16] MEDS: PANTOPRAZOLE SOD 40 MG DELAYED RELEASE TAB PO SCH (08:00)
[2018-02-16] MEDS: METOPROLOL SUCCINATE 50 MG EXTENDED RELEASE TAB PO SCH (08:00)
[2018-02-16] MEDS: FLUTICASONE PROPIONATE 44 MCG/ACT 10.6 GM INHALER INH SCH (08:01)
[2018-02-16] MEDS: SODIUM CHLORIDE 0.9% FLUSH 10 ML FLUSH IV FLUSH SCH ×2 (08:01→21:11)
[2018-02-16] MEDS ORDERED: TIOTROPIUM BROMIDE 18 MCG INH INH SCH (09:00)
--- NOTE | 2018-02-16 11:38 | HHI.PR ---
Subjective Remarks in no acute distress. pain is fairly controlled. no new complaints. Objective Vitals Vital Signs Date Time Temp Pulse Resp B/P (MAP) Pulse Ox O2 Delivery O2 Flow Rate FiO2 02/16/18 08:00 97.5 100 17 167/70 (102) 94 02/16/18 03:55 97.6 94 20 142/68 (92) 96 02/16/18 00:14 92 Nasal Cannula 4.00 02/15/18 23:45 97.1 101 19 162/75 (104) 93 02/15/18 20:15 98.6 95 18 128/60 (82) 95 02/15/18 19:15 99 12 140/68 (92) 95 Nasal Cannula 4 02/15/18 19:00 100 12 140/66 (90) 94 Nasal Cannula 4 02/15/18 18:45 101 20 136/62 (86) 94 Nasal Cannula 4 02/15/18 18:30 100 22 136/63 (87) 95 Nasal Cannula 4 02/15/18 18:11 97.4 103 22 133/62 (85) 95 Simple Mask 8 02/15/18 12:40 185/99 (127) 02/15/18 12:00 97.9 106 20 188/90 (122) 95 I/O 02/15/18 02/15/18 02/15/18 02/16/18 02/16/18 02/16/18 07:00 15:00 23:00 07:00 15:00 23:00 Intake Total 0 ml 0 ml 650 ml 1827 ml Output Total 50 ml Balance 0 ml 0 ml 600 ml 1827 ml Intake Oral 0 ml 0 ml 240 ml IV Total 650 ml 1587 ml Output Estimated Blood Loss 50 ml # Voids 0 3 # Bowel Movements 0 Result Diagram: 02/15/18 0640 02/15/18 0640 Imaging Last Impressions Hip X-Ray 02/15/18 0000 Signed Impressions: Service Date/Time: Thursday, February 15, 2018 17:38 - CONCLUSION: Successful ORIF. Geo Funk MD Pelvis X-Ray 02/14/18 0000 Signed Impressions: Service Date/Time: Wednesday, February 14, 2018 17:35 - CONCLUSION: 1. Left femoral neck fracture. Silver Landaverde MD Femur X-Ray 02/14/18 0000 Signed Impressions: Service Date/Time: Wednesday, February 14, 2018 17:37 - CONCLUSION: 1. Intertrochanteric fracture proximal left femur. Silver Landaverde MD Chest X-Ray 02/14/18 0000 Signed Impressions: Service Date/Time: Wednesday, February 14, 2018 17:58 - CONCLUSION: 1. No acute findings. Silver Landaverde MD Objective Remarks GENERAL: This is a well-nourished, well-developed patient, in no apparent distress. CARDIOVASCULAR: Regular rate and regular rhythm without murmurs, gallops, or rubs. RESPIRATORY: Clear to auscultation. Breath sounds equal bilaterally. No wheezes , rales, or rhonchi. GASTROINTESTINAL: Abdomen soft, non-tender, nondistended. Normal, active bowel sounds MUSCULOSKELETAL: Extremities without clubbing, cyanosis, or edema. NEURO: Alert & Oriented x4 to person, place, time, situation. Moves all ext x4 Medications and IVs Inpatient Medications Acetaminophen (Tylenol) 650 mg Q4H PRN PO FEVER/HEADACHE; Start 02/14/18 at 20: 15 Albuterol/ Ipratropium (Duoneb Neb) 1 ampule Q4HR NEB PRN NEB SOB/Wheezing; Start 02/14/18 at 20:15 Bisacodyl (Dulcolax Supp) 10 mg DAILY PRN RECTAL SEVERE CONSITIPATION; Start at 20:15 Cefazolin Sodium 1000 mg/Sodium Chloride 100 ml @ 200 mls/hr Q8H IV Last administered on 02/16/18at 08:01; Start 02/16/18 at 01:00 Clonidine (Catapres) 0.1 mg Q6H PRN PO SBP>160, DBP>90; Start 02/14/18 at 20:15 Cyclobenzaprine HCl (Flexeril) 5 mg Q8HR PRN PO MUSCLE SPASM Last administered on 02/16/18at 03:45; Start 02/15/18 at 12:00 Enalaprilat (Vasotec Inj) 1.25 mg Q8H PRN IV PUSH SBP> OR = 180, DBP> OR = 100 Last administered on 02/15/18at 12:43; Start 02/15/18 at 12:00 Enoxaparin Sodium (Lovenox Inj) 40 mg Q24H SQ Last administered on 02/16/18at 05 :56; Start 02/16/18 at 06:00 Fluticasone Propionate (Flovent Hfa 44 Mcg Inh) 2 puff BID INH Last administered on 02/16/18at 08:01; Start 02/15/18 at 21:00 Lactulose (Lactulose Liq) 30 ml DAILY PRN PO SEVERE CONSITIPATION; Start at 20:15 Lisinopril (Prinivil) 40 mg DAILY PO Last administered on 02/16/18at 08:00; Start 02/16/18 at 09:00 Magnesium Hydroxide (Milk Of Magnesia Liq) 30 ml Q12H PRN PO Mild constipation ; Start 02/14/18 at 20:15 Metoprolol Succinate (Toprol Xl) 50 mg DAILY PO Last administered on 02/16/18at 08:00; Start 02/16/18 at 09:00 Miscellaneous (Pill Splitter) 1 ea UNSCH PRN OTHER SEE LABEL COMMENTS; Start at 12:15 Miscellaneous Information ALL NURSING DEPARTME... UNSCH PRN .XX SEE LABEL COMMENTS; Start 02/15/18 at 18:10; Stop 02/16/18 at 18:09 Miscellaneous Information (Post-op Orders (for Pharmacy)) STAT ONCE XX ; Start 02/15/18 at 17:45; Stop 02/15/18 at 18:00; Status DC Morphine Sulfate (Morphine Inj) 2 mg Q3H PRN IV pain 6-10 Last administered on 02/16/18at 03:45; Start 02/15/18 at 11:15 Naloxone HCl (Narcan Inj) 0.4 mg UNSCH PRN IV PUSH SEE LABEL COMMENTS; Start at 20:15 Ondansetron HCl (Zofran Inj) 4 mg Q6H PRN IVP NAUSEA OR VOMITING Last administered on 02/15/18at 06:47; Start 02/14/18 at 20:15 Pantoprazole Sodium (Protonix) 40 mg DAILY PO Last administered on 02/16/18at 08 :00; Start 02/16/18 at 09:00 Potassium Chloride (KCl) 20 meq DAILY PO Last administered on 02/16/18at 08:00; Start 02/16/18 at 09:00 Pravastatin Sodium (Pravachol) 80 mg DAILY PO Last administered on 02/16/18 08 :00; Start 02/16/18 at 09:00 Prochlorperazine Edisylate (Compazine Inj) 5 mg Q8H PRN IV PUSH NAUSEA; Start 02/15/18 at 10:45 Senna/Docusate Sodium (Ayleen-Colace) 1 tab BID PO Last administered on 08:00; Start 02/14/18 at 21:00 Sennosides (Senokot) 17.2 mg Q12H PRN PO Moderate constipation; Start 02/14/18 at 20:15 Sodium Chloride (NS Flush) 2 ml BID IV FLUSH Last administered on 02/16/18at 08: 01; Start 02/15/18 at 21:00 Tiotropium [place] (Spiriva Inh) 18 mcg DAILY INH Last administered on at 08:01; Start 02/16/18 at 09:00 A/P Assessment and Plan 1. Left hip fracture Status post mechanical fall Pelvic x-ray significant for an intertrochanteric fracture of the proximal left femur with varus angulation s/p Intramedullary nail left intertrochanteric femur fracture continue pain control and PT. management per ortho. 2. COPD Continue 2 L nasal cannula Duo nebs when necessary 3. Hypertension/hyperlipidemia/CAD Continue home medications . DVT prophylaxis with subq Lovenox. Discharge Planning when cleared by ortho. Kaylee Clarke MD Feb 16, 2018 11:38
[2018-02-16] MEDS: SODIUM CHLOR 0.9% 1000 ML INJ 1,000 ML IV SCH (12:15)
[2018-02-16] MEDS ORDERED: ACETAMINOPHEN/HYDROcodone 325 MG/5 MG TAB PO PRN ×2 (18:45)
--- NOTE | 2018-02-16 23:06 | EKG ---
Date Performed: 02/15/2018 Time Performed: 11:19:39 PTAGE: 72 years EKG: SINUS TACHYCARDIA NONSPECIFIC ST & T-WAVE ABNORMALITY ABNORMAL RHYTHM ECG PREVIOUS TRACING : 06/29/2015 07.41 Since the previous tracing, no significant change noted DOCTOR: Zoraida Alcala Interpretating Date/Time 02/16/2018 23:05:03
[2018-02-17] MEDS: FLUTICASONE PROPIONATE 44 MCG/ACT 10.6 GM INHALER INH SCH (01:17)
[2018-02-17] MEDS: ENOXAPARIN SODIUM 40 MG/0.4 ML SYRINGE SQ SCH (06:53)
[2018-02-17 07:00] LABS: AUTOMATED NEUTROPHIL # 6.9 TH/MM3 (1.8-7.7); BASOPHIL % 0.3 % (0.0-2.0); EOSINOPHIL # 0.1 TH/MM3 (0-0.4); EOSINOPHIL % 1.1 % (0.0-4.0); HEMATOCRIT 26.9 % (35.0-46.0); HEMOGLOBIN 8.3 GM/DL (11.6-15.3); LYMPH % 20.9 % (9.0-44.0); LYMPHOCYTE # 2.3 TH/MM3 (1.0-4.8); MEAN CELL VOLUME 73.1 FL (80.0-100.0); MEAN CORPUSCULAR HEMOGLOBIN 22.5 PG (27.0-34.0); MEAN CORPUSCULAR HGB CONC 30.7 % (32.0-36.0); MEAN PLATELET VOLUME 6.8 FL (7.0-11.0); MONO % 13.7 % (0.0-8.0); MONOCYTE # 1.5 TH/MM3 (0-0.9); PLATELET COUNT 238 TH/MM3 (150-450); RED BLOOD COUNT 3.68 MIL/MM3 (4.00-5.30); RED CELL DISTRIBUTION WIDTH 18.8 % (11.6-17.2); WHITE BLOOD COUNT 10.8 TH/MM3 (4.0-11.0)
[2018-02-17 08:00] VITALS: BP 142/79; PULSE 111; RESP 20; TEMP 98.6; O2SAT 90
[2018-02-17] MEDS: PRAVASTATIN SOD 80 MG TAB PO SCH (09:30)
[2018-02-17] MEDS: POTASSIUM CHLORIDE 20 MEQ CONTROLLED RELEASE TAB PO SCH (09:30)
[2018-02-17] MEDS: METOPROLOL SUCCINATE 50 MG EXTENDED RELEASE TAB PO SCH (09:31)
[2018-02-17] MEDS: DOCUSATE SODIUM 50 MG/SENNA 8.6 MG TAB PO SCH (09:31)
[2018-02-17] MEDS: PANTOPRAZOLE SOD 40 MG DELAYED RELEASE TAB PO SCH (09:31)
[2018-02-17] MEDS: LISINOPRIL 20 MG TAB PO SCH (09:31)
--- NOTE | 2018-02-17 09:40 | HHI.PR ---
Subjective Remarks in no acute distress. pain is controlled. no dizziness. no new complaints. Objective Vitals Vital Signs Date Time Temp Pulse Resp B/P (MAP) Pulse Ox O2 Delivery O2 Flow Rate FiO2 02/17/18 08:00 98.6 111 20 142/79 (100) 90 02/16/18 23:30 99.0 100 18 153/77 (102) 97 02/16/18 20:00 99.4 108 17 164/73 (103) 97 02/16/18 19:40 Nasal Cannula 4.00 02/16/18 16:41 16 02/16/18 16:01 99.6 100 17 153/69 (97) 98 02/16/18 11:58 98.9 98 17 144/62 (89) 95 I/O 02/16/18 02/16/18 02/16/18 02/17/18 02/17/18 02/17/18 07:00 15:00 23:00 07:00 15:00 23:00 Intake Total 1827 ml 480 ml 240 ml Balance 1827 ml 480 ml 240 ml Intake Oral 240 ml 480 ml 240 ml IV Total 1587 ml # Voids 3 3 8 # Bowel Movements 0 0 0 Result Diagram: 02/17/18 0542 02/15/18 0640 Imaging Last Impressions Hip X-Ray 02/15/18 0000 Signed Impressions: Service Date/Time: Thursday, February 15, 2018 17:38 - CONCLUSION: Successful ORIF. Geo Funk MD Pelvis X-Ray 02/14/18 0000 Signed Impressions: Service Date/Time: Wednesday, February 14, 2018 17:35 - CONCLUSION: 1. Left femoral neck fracture. Silver Landaverde MD Femur X-Ray 02/14/18 0000 Signed Impressions: Service Date/Time: Wednesday, February 14, 2018 17:37 - CONCLUSION: 1. Intertrochanteric fracture proximal left femur. Silver Landaverde MD Chest X-Ray 02/14/18 0000 Signed Impressions: Service Date/Time: Wednesday, February 14, 2018 17:58 - CONCLUSION: 1. No acute findings. Silver Landaverde MD Objective Remarks GENERAL: This is a well-nourished, well-developed patient, in no apparent distress. CARDIOVASCULAR: Regular rate and regular rhythm without murmurs, gallops, or rubs. RESPIRATORY: Clear to auscultation. Breath sounds equal bilaterally. No wheezes , rales, or rhonchi. GASTROINTESTINAL: Abdomen soft, non-tender, nondistended. Normal, active bowel sounds MUSCULOSKELETAL: Extremities without clubbing, cyanosis, or edema. NEURO: Alert & Oriented x4 to person, place, time, situation. Moves all ext x4 Medications and IVs Inpatient Medications Acetaminophen (Tylenol) 650 mg Q4H PRN PO FEVER/HEADACHE; Start 02/14/18 at 20: 15 Acetaminophen/ Hydrocodone Bitart (Pimento 5-325 Mg) 2 tab Q4H PRN PO PAIN SCALE 6-10; Start 02/16/18 at 18:45 Albuterol/ Ipratropium (Duoneb Neb) 1 ampule Q4HR NEB PRN NEB SOB/Wheezing; Start 02/14/18 at 20:15 Bisacodyl (Dulcolax Supp) 10 mg DAILY PRN RECTAL SEVERE CONSITIPATION; Start at 20:15 Cefazolin Sodium 1000 mg/Sodium Chloride 100 ml @ 200 mls/hr Q8H IV Last administered on 02/17/18at 01:17; Start 02/16/18 at 01:00 Clonidine (Catapres) 0.1 mg Q6H PRN PO SBP>160, DBP>90; Start 02/14/18 at 20:15 Cyclobenzaprine HCl (Flexeril) 5 mg Q8HR PRN PO MUSCLE SPASM Last administered on 02/16/18at 21:11; Start 02/15/18 at 12:00 Enalaprilat (Vasotec Inj) 1.25 mg Q8H PRN IV PUSH SBP> OR = 180, DBP> OR = 100 Last administered on 02/15/18at 12:43; Start 02/15/18 at 12:00 Enoxaparin Sodium (Lovenox Inj) 40 mg Q24H SQ Last administered on 02/17/18at 06 :53; Start 02/16/18 at 06:00 Fluticasone Propionate (Flovent Hfa 44 Mcg Inh) 2 puff BID INH Last administered on 02/17/18at 01:17; Start 02/15/18 at 21:00 Lactulose (Lactulose Liq) 30 ml DAILY PRN PO SEVERE CONSITIPATION; Start at 20:15 Lisinopril (Prinivil) 40 mg DAILY PO Last administered on 02/16/18at 08:00; Start 02/16/18 at 09:00 Magnesium Hydroxide (Milk Of Magnmagen Liq) 30 ml Q12H PRN PO Mild constipation ; Start 02/14/18 at 20:15 Metoprolol Succinate (Toprol Xl) 50 mg DAILY PO Last administered on 02/16/18at 08:00; Start 02/16/18 at 09:00 Miscellaneous (Pill Splitter) 1 ea UNSCH PRN OTHER SEE LABEL COMMENTS; Start at 12:15 Miscellaneous Information ALL NURSING DEPARTME... UNSCH PRN .XX SEE LABEL COMMENTS; Start 02/15/18 at 18:10; Stop 02/16/18 at 18:09; Status DC Miscellaneous Information (Post-op Orders (for Pharmacy)) STAT ONCE XX ; Start 02/15/18 at 17:45; Stop 02/15/18 at 18:00; Status DC Morphine Sulfate (Morphine Inj) 2 mg Q3H PRN IV pain 6-10 Last administered on 02/16/18at 16:36; Start 02/15/18 at 11:15 Naloxone HCl (Narcan Inj) 0.4 mg UNSCH PRN IV PUSH SEE LABEL COMMENTS; Start at 20:15 Ondansetron HCl (Zofran Inj) 4 mg Q6H PRN IVP NAUSEA OR VOMITING Last administered on 02/15/18at 06:47; Start 02/14/18 at 20:15 Pantoprazole Sodium (Protonix) 40 mg DAILY PO Last administered on 02/16/18at 08 :00; Start 02/16/18 at 09:00 Potassium Chloride (KCl) 20 meq DAILY PO Last administered on 02/16/18at 08:00; Start 02/16/18 at 09:00 Pravastatin Sodium (Pravachol) 80 mg DAILY PO Last administered on 02/16/18at 08 :00; Start 02/16/18 at 09:00 Prochlorperazine Edisylate (Compazine Inj) 5 mg Q8H PRN IV PUSH NAUSEA; Start 02/15/18 at 10:45 Senna/Docusate Sodium (Ayleen-Colace) 1 tab BID PO Last administered on at 21:11; Start 02/14/18 at 21:00 Sennosides (Senokot) 17.2 mg Q12H PRN PO Moderate constipation; Start 02/14/18 at 20:15 Sodium Chloride (NS Flush) 2 ml BID IV FLUSH Last administered on 02/16/18at 21: 11; Start 02/15/18 at 21:00 Tiotropium Artie (Spiriva Inh) 18 mcg DAILY INH Last administered on at 08:01; Start 02/16/18 at 09:00 A/P Assessment and Plan 1. Left hip fracture Status post mechanical fall Pelvic x-ray significant for an intertrochanteric fracture of the proximal left femur with varus angulation s/p Intramedullary nail left intertrochanteric femur fracture continue pain control and PT. cleared by ortho for discharge. 2. COPD/ chronic respiratory failure; oxygen-dependent. Continue 2 L nasal cannula Duo nebs when necessary 3. Hypertension/hyperlipidemia/CAD Continue home medications . 4- anemia- post-op. continue to monitor for now. DVT prophylaxis with subq Lovenox. Discharge Planning dc to SNF. see med list. f/u; pcp and ortho. d/w the patient. time spent 35 min. Kaylee Clarke MD Feb 17, 2018 09:40
[2018-02-17] MEDS ORDERED: ENOX40P SQ (09:42)
[2018-02-17] MEDS ORDERED: HYDR-3516 PO (09:42)
--- NOTE | 2018-02-17 09:46 | HHI.DS ---
Discharge Summary Admission Date Feb 14, 2018 at 19:30 Discharge Date: Feb 17, 2018 Admitting Diagnosis hip fracture (1) Hip fracture ICD Code: S72.009A - Fracture of unspecified part of neck of unspecified femur , initial encounter for closed fracture Diagnosis: Principal Status: Acute Procedures Intramedullary nail left intertrochanteric femur fracture Brief History - From Admission 72-year-old female with a past medical history significant for hypertension, COPD on 2 L nasal cannula, CAD status post [place] 2 years ago and hyperlipidemia presents to the emergency department for evaluation of a fall. The patient is an extremely poor historian. She reports she fell onto her left side while walking in her home earlier today. She is unable to provide me with any additional details. She denies any loss of consciousness. She is confused and asks me who I am multiple times. It is unclear what the patient's baseline is. CBC/BMP: 02/17/18 0542 02/15/18 0640 Significant Findings Laboratory Tests Test 02/14/18 17:10 02/15/18 06:40 02/17/18 05:42 White Blood Count 11.6 TH/MM3 (4.0-11.0) 12.3 TH/MM3 (4.0-11.0) Hemoglobin 9.7 GM/DL (11.6-15.3) 9.0 GM/DL (11.6-15.3) 8.3 GM/DL (11.6-15.3) Hematocrit 31.5 % (35.0-46.0) 29.3 % (35.0-46.0) 26.9 % (35.0-46.0) Mean Corpuscular Volume 72.1 FL (80.0-100.0) 70.9 FL (80.0-100.0) 73.1 FL (80.0-100.0) Mean Corpuscular Hemoglobin 22.2 PG (27.0-34.0) 21.8 PG (27.0-34.0) 22.5 PG (27.0-34.0) Mean Corpuscular Hemoglobin Concent 30.9 % (32.0-36.0) 30.7 % (32.0-36.0) 30.7 % (32.0-36.0) Red Cell Distribution Width 19.1 % (11.6-17.2) 18.9 % (11.6-17.2) 18.8 % (11.6-17.2) Mean Platelet Volume 6.7 FL (7.0-11.0) 6.4 FL (7.0-11.0) 6.8 FL (7.0-11.0) Neutrophils # (Auto) 8.0 TH/MM3 (1.8-7.7) 9.3 TH/MM3 (1.8-7.7) Prothrombin Time 9.3 SEC (9.8-11.6) Neutrophils (%) (Auto) 75.1 % (16.0-70.0) Monocytes (%) (Auto) 9.8 % (0.0-8.0) 13.7 % (0.0-8.0) Monocytes # (Auto) 1.2 TH/MM3 (0-0.9) 1.5 TH/MM3 (0-0.9) Creatinine 0.43 MG/DL (0.50-1.00) Calcium Level 8.3 MG/DL (8.5-10.1) Red Blood Count 3.68 MIL/MM3 (4.00-5.30) PE at Discharge GENERAL: This is a well-nourished, well-developed patient, in no apparent distress. CARDIOVASCULAR: Regular rate and regular rhythm without murmurs, gallops, or rubs. RESPIRATORY: Clear to auscultation. Breath sounds equal bilaterally. No wheezes , rales, or rhonchi. GASTROINTESTINAL: Abdomen soft, non-tender, nondistended. Normal, active bowel sounds MUSCULOSKELETAL: Extremities without clubbing, cyanosis, or edema. NEURO: Alert & Oriented x4 to person, place, time, situation. Moves all ext x4 Hospital Course 1. Left hip fracture Status post mechanical fall Pelvic x-ray significant for an intertrochanteric fracture of the proximal left femur with varus angulation s/p Intramedullary nail left intertrochanteric femur fracture continue pain control and PT. cleared by ortho for discharge. 2. COPD/ chronic respiratory failure; oxygen-dependent. Continue 2 L nasal cannula Duo nebs when necessary 3. Hypertension/hyperlipidemia/CAD Continue home medications . DVT prophylaxis with subq Lovenox. Pt Condition on Discharge: Fair Discharge Disposition: Discharge to SNF Discharge Time: > 30 minutes Discharge Instructions DIET: Follow Instructions for: Heart Healthy Diet Activities you can perform: Regular-No Restrictions Other Activity Instructions: Partial weightbearing 50% left lower extremity. Kaylee Clarke MD Feb 17, 2018 09:46
--- NOTE | 2018-02-17 11:14 | PQ ---
Physician Query Response Document PATIENT: ERI MENDEZ : 1945 ADMIT DATE: 02/14/2018 7:30 PM DISCH DATE: 02/17/2018 10:49 AM RESPONDING PROVIDER #: [email or web address] QUERY TEXT: CDS Clarification Chronic respiratory failure in the setting of COPD requiring treatment with supplemental oxygen, nick icosteroids, and bronchodilators. Other explanation of clinical findings. Unable to determine (no explanation for clinical findings). Please clarify and document your clinical opinion in the progress notes and discharge summary includi ng the definitive and/or presumptive diagnosis (suspected or probable), related to the above clinical findings. Please include clinical findings supporting your diagnosis. Thank you, Sanjuanita Biswas CDS: Sanjuanita Biswas Patient Unit: [id number] Contact Number: DAHLIA/MARIA ISABEL Room: Critical access hospital The patient's Clinical Indicators include: * Clinical Indicators: complaining of shortness of breath, requirement for chronic oxygen dependence at home * Risk Factors: COPD * Treatment: continued 2 L of supplemental oxygen, 2 puffs Flovent Hfa 44mcg inhalor BID, and DuoNeb Q4h prn Query created by: Sanjuanita Biswas on 02/15/2018 1:44 PM RESPONSE TEXT: Chronic respiratory failure/COPD- oxygen dependent. Electronically signed by: Kaylee Clarke MD 02/17/2018 11:10 AM
== END 2018-02-17 10:49 | DRG 481 ==
LOC: NEPE 16:08 → NEDA 19:30 → N07B 21:07 → N06B 02-15 15:33
PROVIDERS: ADMIT Internal Medicine; ATTEND Internal Medicine
PROC: 0QS706Z Reposition Left Upper Femur with Intramedullary Internal Fixation Device, Open Approach (ICD-10-PCS; principal; 2018-02-15 16:43)
DX: S72.142A Displaced intertrochanteric fracture of left femur, initial encounter for closed fracture (principal); D62 Acute posthemorrhagic anemia; J96.10 Chronic respiratory failure, unspecified whether with hypoxia or hypercapnia; Z86.74 Personal history of sudden cardiac arrest; Z99.81 Dependence on supplemental oxygen; J44.9 Chronic obstructive pulmonary disease, unspecified; K21.9 Gastro-esophageal reflux disease without esophagitis; I10 Essential (primary) hypertension; I25.10 Atherosclerotic heart disease of native coronary artery without angina pectoris; E78.5 Hyperlipidemia, unspecified; M19.90 Unspecified osteoarthritis, unspecified site; W19.XXXA Unspecified fall, initial encounter; I25.2 Old myocardial infarction
CPT/HCPCS: 71045; 72170; 73502; 73552; 76000; 80048; 80053; 85025; 85610; 85730; 93005; 94150; 94664; 96374; C1713; J0330; J0690; J1100; J1580; J1650; J2270; J2370; J2405; J3010; J3370; J7030; J7613